=== PATIENT | male | born 1990 | race Caucasian/White ===

== ENCOUNTER 2023-11-03 14:59 | Emergency (ER) | payer BC, SELFPAY ==
[2023-11-03 15:03] VITALS: BP 161/81; PULSE 78; RESP 20; TEMP 36.6; O2SAT 98; BMI 31.0
--- NOTE | 2023-11-03 15:29 | ED_ITS ---
HPI - Neck Pain/Injury General Chief Complaint: Neck Injury/Pain Stated Complaint: neck pain Time Seen by Provider: 11/03/23 15:08 History of Present Illness HPI Narrative: This 33-year-old male comes in reporting severe neck pain that began yesterday. He does have a prior history of cervical radiculopathy that was rather severe and occurring about 3 years ago. He did see a marketing programs specialist at that time an MRI imaging did confirm nerve impingement. After about 6 weeks back then he recovered and has done well since then until yesterday. Yesterday he was putting a motorcycle helmet on his head and had onset of pain that is worsened today. He states that he did not sleep well last night. He has been taking Tylenol and ibuprofen without much relief. He does not report any injury event or strenuous activity otherwise. He states that pain does seem to radiate down his right arm on occasion. Related Data Previous Rx's ?Medication ?Instructions ?Recorded cyclobenzaprine 10 mg tablet 10 mg PO TID #15 tabs 11/03/23 gabapentin 100 mg capsule 100 mg PO TID #30 caps 11/03/23 hydrocodone 5 mg-acetaminophen 325 1 tab PO Q4-6H PRN pain #20 tabs 11/03/23 mg tablet ketorolac 10 mg tablet 10 mg PO Q8H 5 days #15 tabs 11/03/23 methylprednisolone 4 mg tablets in See Rx Instructions PO .COMPLEX 11/03/23 a dose pack (Medrol (Jed)) #21 ea Allergies Allergy/AdvReac Type Severity Reaction Status Date / Time No Known Drug Allergies Allergy Verified 11/03/23 15:05 Review of Systems Status of ROS: Reports: 10 or more systems reviewed and unremarkable except as noted in History and below Narrative: Constitutional: No fevers, no weight gain or loss. Eyes: No discharge. No vision changes. HENT: No congestion, no sore throat, no ear pain. Cardiovascular: No chest pain, no palpitations. Respiratory: No shortness of breath, no wheezes, no cough. Gastrointestinal: No abdominal pain, no vomiting, no diarrhea. Genitourinary: No dysuria, no hematuria. Musculoskeletal: Normal range of motion. Skin: No rashes, no pruritis. Neurological: No dizziness, weakness, sensory change, speech change. Endo/Heme/Allergies: No bruising or bleeding. No polydipsia. Pysch: no suicidality, no anxiety, no insomnia. All other systems reviewed and are negative. PFSH PFS Social History Smoking Status: Current some day smoker How often do you have a drink containing alcohol: never How often do you have six or more drinks on one occasion: Never AUDIT-C Alcohol total score: 0 Non-prescribed substance use: denies use Exam Narrative: Exam Narrative: Constitutional: Well-developed, well-nourished, no acute distress. HEENT: Normocephalic, atraumatic. Neck: Decreased range of motion due to pain. No midline tenderness when palpating along the spine. Heart: Regular. No murmurs. Normal rate. Intact distal pulses. Lungs: Clear to auscultation. No chest discomfort. No wheezes, rhonchi, or rales. Abdomen: Normal bowel sounds. Nontender. No rebound tenderness. Genitalia: Deferred. Back: No midline tenderness. Normal range of motion. Extremities: Normal range of motion. No injury. Skin: Intact. No rash. Warm. No erythema or pallor. Neurologic: No altered sensation. No weakness. Alert and oriented. Psychiatric: No suicidality. No anxiety or depression. No insomnia. Nursing notes and vitals signs are reviewed. Const: Vital Signs, click to edit/add: Vital Signs - 24 hr 11/03/23 15:03 11/03/23 16:15 Temperature 97.9 F Pulse Rate [Pulse Oximeter] 78 82 Respiratory Rate 20 12 Blood Pressure [Ri ght Upper Arm] 161/81 H Pulse Oximetry 98 98 Oxygen Delivery Me thod Room Air Room Air Course Vital Signs Vital signs: Initial Vital Signs Temperature 97.9 F 11/03/23 15:03 Temperature Source Temporal Artery Scan 11/03/23 15:03 Pulse Rate 78 11/03/23 15:03 Respiratory Rate 20 11/03/23 15:03 Blood Pressure 161/81 H 11/03/23 15:03 Blood Pressure Mean 107 H 11/03/23 15:03 Blood Pressure Position Sitting 11/03/23 15:03 Pulse Oximetry 98 11/03/23 15:03 Oxygen Delivery Method Room Air 11/03/23 15:03 Vital Signs Temperature 97.9 F 11/03/23 15:03 Pulse Rate 78 11/03/23 15:03 Respiratory Rate 20 11/03/23 15:03 Blood Pressure 161/81 H 11/03/23 15:03 Pulse Oximetry 98 11/03/23 15:03 Oxygen Delivery Method Room Air 11/03/23 15:03 Temperature 97.9 F 11/03/23 15:03 Pulse Rate 82 11/03/23 16:15 Respiratory Rate 12 11/03/23 16:15 Blood Pressure 161/81 H 11/03/23 15:03 Pulse Oximetry 98 11/03/23 16:15 Oxygen Delivery Method Room Air 11/03/23 16:15 Medications Administered Medications: Discontinued Medications Generic Name Dose Route Start Last Admin Trade Name Freq PRN Reason Stop Dose Admin Dexamethasone 10 mg 11/03/23 15:27 11/03/23 16:00 Dexamethasone 10 Mg/Ml Inj PO 11/03/23 15:28 10 mg ONCE ONE Administration Morphine Sulfate 10 mg 11/03/23 15:27 11/03/23 16:02 Morphine 10 Mg/Ml Inj IM 11/03/23 15:28 10 mg ONCE ONE Administration MDM - Neck Pain/Injury MDM Narrative Medical decision making narrative: This patient comes in with a recurrence of neck pain that radiates down his right arm suggestive of cervical radiculopathy. There was no mechanism of injury that requires imaging at this time. The patient did receive an intramuscular injection of morphine 10 mg and an oral dose of dexamethasone 10 mg. Prescriptions are provided for Toradol, [place], Medrol Dosepak, Flexeril, and gabapentin. I advised him to follow-up with spine clinic and gave information regarding options for this. Discharge Plan Discharge Clinical Impression: Cervical radiculopathy Patient Disposition: Home, Self-Care Condition: Unchanged Additional Instructions: Take medication as needed and indicated. Follow up with Spine Clinic for ongoing management. Spine clinic here can be accessed by dialing [phone]. Prescriptions: New cyclobenzaprine 10 mg tablet 10 mg PO TID Qty: 15 0RF hydrocodone-acetaminophen 5-325 mg tablet 1 tab PO Q4-6H PRN (Reason: pain) Qty: 20 0RF ketorolac 10 mg tablet 10 mg PO Q8H 5 Days Qty: 15 0RF gabapentin 100 mg capsule 100 mg PO TID Qty: 30 2RF methylprednisolone [Medrol (Jed)] 4 mg tablets,dose pack See Rx Instructions .ROUTE .COMPLEX Qty: 21 0RF Rx Instructions: orally per package directions Stand Alone Forms: [email or web address] Info Instructions
[2023-11-03] MEDS: dexAMETHasone 10 MG/ML inj PO (16:00)
[2023-11-03] MEDS: MORPHINE 10 MG/ML inj IM (16:02)
[2023-11-03 16:15] VITALS: PULSE 82; RESP 12; O2SAT 98
== END 2023-11-03 16:21 | disposition home or self-care (01) ==
LOC: ED 15:43
PROVIDERS: Emergency Provider Emergency Medicine Emergency Medical Services
DX: M54.12 Radiculopathy, cervical region (principal)
CPT/HCPCS: 96372; 99283; 99284; J1100; J2270

== ENCOUNTER 2023-11-24 08:36 | Outpatient (CLI) | payer BC, SELFPAY | END 2023-11-24 08:37 | disposition home or self-care (01) | PROVIDERS: PCP Family Medicine; Visit Provider Family Medicine | DX: Z00.00 Encounter for general adult medical examination without abnormal findings (principal); R53.83 Other fatigue; M25.50 Pain in unspecified joint; Z13.6 Encounter for screening for cardiovascular disorders | CPT/HCPCS: 80053; 84403; 84443; 85025 ==

== ENCOUNTER 2023-12-07 08:05 | Outpatient (CLI) | payer BC, SELFPAY | END 2023-12-07 08:06 | disposition home or self-care (01) | LOC: NFLDREF 12-11 23:04 | PROVIDERS: PCP Family Medicine; Referring Provider Family Medicine; Visit Provider Family Medicine | DX: M25.50 Pain in unspecified joint (principal); Z13.220 Encounter for screening for lipoid disorders | CPT/HCPCS: 80061; 86039; 86140; 86431 ==

== ENCOUNTER 2024-12-16 14:01 | Outpatient (CLI) | payer OTHER, BC, SELFPAY | END 2024-12-16 14:02 | disposition home or self-care (01) | PROVIDERS: PCP Family Medicine; Visit Provider Family Medicine | DX: Z01.818 Encounter for other preprocedural examination (principal) | CPT/HCPCS: 80048; 85025 ==